=== PATIENT | female | born 1980 | race Caucasian/White ===

== ENCOUNTER → 2016-10-27 | Outpatient (CLI) | payer OTHER ==
[~2016-10-27] MED LIST: AMOX875T2 PO; FLUC150T PO; GLIM2TAB PO; LEVO75TA4 PO; METF-474 PO; METR500T17 PO; PARO40TA3 PO; SULF-221 PO
[2016-10-27 15:02] VITALS: BP 114/74
--- NOTE | 2016-10-27 15:02 | Urgent Care T Sheet Gen (E) ---
Intake General Temperature (Fahrenheit): 97.9 Pulse: 84 Blood Pressure Systolic: 114 Blood Pressure Diastolic: 74 Respirations: 22 SPO2: 97 Description of Symptoms Patient presents with 2 complaints. First, she states she cut her L anterior kay approx 4 weeks ago shaving. States the sore hasn't healed and she wonders if it is infected. States it itches on occasion however is red, swollen and warm. No fever. Keeps it covered daily with a bandage and Neosporin. Next, patient states she developed a cold yesterday. Notes malaise, nasal congestion and cough. No meds. History of Present Illness Allergies: Coded Allergies: morphine (Verified Allergy, Intermediate, VOMITING AND ITCHING, 09/28/13) Silicone (Verified Allergy, Mild, CELLULITIS, 09/28/13) codeine (Verified Allergy, Mild, 09/28/13) VOMITING Home Meds Active Scripts Fluconazole (Diflucan)150 Mg [id number] Mg PO DAILY #4 TAB Take 1 tab now, then 1 tab on day 3, then 1 tab on day 5, then 1 tab on day 7 Prov:JULIO CORADO 10/27/16 Sulfamethoxazole/Trimethoprim (Sulfamethoxazole/Trimethoprim DS 800mg/160mg)1 Each Tablet1 Each PO BID #14 TAB Prov:JULIO CORADO 10/27/16 Fluconazole (Diflucan)150 Mg [id number] Mg PO DAILY #3 TAB Take 1 po now then take 1 po in 3 days then take 1 po in 7 days. Prov:JULIO CORADO 03/10/16 Metronidazole (Flagyl)500 Mg [id number] Mg PO BID #14 TAB Ref 0 Prov:JULIO CORADO 03/10/16 Fluconazole (Diflucan)150 Mg [id number] Mg PO DAILY #3 TAB Take 1 po now, then take 1 po on day 4, then take 1 po on day 8. Prov:JULIO CORADO 01/07/16 Sulfamethoxazole/Trimethoprim (Sulfamethoxazole/Trimethoprim DS 800mg/160mg)1 Each Tablet1 Each PO BID #14 TAB Prov:JULIO CORADO 01/07/16 Amoxicillin 875 Mg [id number] Mg PO BID #14 TAB Ref 0 Prov:JULIO CORADO 10/30/15 Fluconazole (Diflucan)150 Mg [id number] Mg PO ONCE #1 TAB Ref 1 Prov:JULIO CORADO ZE 10/30/15 Reported Medications Levothyroxine Sodium 75 Mcg [id number] Mcg PO DAILY 09/28/13 Glimepiride 2 Mg Tablet2 Mg PO DAILY 09/28/13 Metformin HCl (Metformin HCl ER)1,000 Mg Tab.er.241,000 Mg PO DAILY 09/28/13 Paroxetine HCl 40 Mg Pehbzm06 Mg PO DAILY 09/28/13 Respiratory Constitutional Symptoms: No syptoms reported EENTM: Nose Congestion Respiratory: Cough Cardiovascular: No symptoms reported Gastrointestinal/Abdominal: No symptoms reported Skin: Lesions All Other Systems Reviewed Remaining Systems: All other systems reviewed with negative findings Physical Exam Physical Exam General Appearance: WD/WN No apparent distress Eyes, Ears, Nose, Throat Ex: TMs normal Pharyngeal erythema (PND) Other ( nasal congestion with clear, thin drainage) Neck Exam: SuppleNo Lymphadenopathy Respiratory Exam: Lungs clear (coughed during exam.) Normal breath sounds Cardiovascular Exam: Regular rate, rhythm Skin Exam: Other (examination of the L anterior kay reveals a red lesion approx 2inch in size. area is indurated. blanchable. warmth and redness surround the cut.) Extremity Exam: No Tenderness (calf), Pedal edema (1+ bilateral)No Homam's sign (negative) Departure Urgent Care Impression Impression: Primary Impression: Skin infection Additional Impression: URI (upper respiratory infection) Qualified Code: J00 - Acute nasopharyngitis [common cold] Departure Disposition: HOME OR SELF-CARE Condition: Stable Referrals: RADU RAMIRES MD (PCP) Additional Instructions: The lesion on the kay does look infected. I'm surprised that it hasn't healed in 4 weeks but I'm wondering if the daily application of Neosporin helped to keep the infection at bay. I have started her on Bactrim BID x 7 days. She may continue with the Neosporin if she would like. Explained that the abx probably won't help with the URI symptoms as those are most likely viral. Patient states she gets yeast infections easily and requested 4 Diflucan tabs. Return as needed or if infection worsens or changes Patient understands DC instructions. All questions were answered. Scripts Fluconazole (Diflucan)150 Mg [id number] Mg PO DAILY #4 TAB Take 1 tab now, then 1 tab on day 3, then 1 tab on day 5, then 1 tab on day 7 Prov:JULIO CORADO 10/27/16 Sulfamethoxazole/Trimethoprim (Sulfamethoxazole/Trimethoprim DS 800mg/160mg)1 Each Tablet1 Each PO BID #14 TAB Prov:JULIO CORADO 10/27/16 End of report . JULIO CORADO Oct 27, 2016 13:57
== END ==
LOC: MHUC 13:40
PROVIDERS: ATTEND Physician Assistant
DX: L08.89 Other specified local infections of the skin and subcutaneous tissue (principal); J00 Acute nasopharyngitis [common cold]
CPT/HCPCS: 99213